=== PATIENT | male | born 1950 | race Caucasian/White ===

== ENCOUNTER 2017-10-08 17:00 | Inpatient (IN) | payer OTHER ==
[~2017-10-08] VITALS: Ht 167.6 cm; Wt 124.0 kg
[~2017-10-08 17:00] MED LIST: ALLERGY10 M2 PO; ALLOPURINOL100 MG PO; ALLOPURINOL300 MG PO; AMITRIPTYLINE100 MG PO; AMLODIPINE BESYL5 MG PO; APRESOLINE50 MG PO; ASCORBIC ACID500 M3 PO; ASPIRIN81 M1 PO; ASPIRIN81 M2 PO; Aspirin E.C. PO; B COMPLETE1 EACH PO; BALANCED B PO; BENEMID500 MG PO; BUDEPRION XL300 MG PO; BUPROPION XL300 MG PO; BUSPAR10 MG PO; Buspar PO; CALCIUM, MAG, ZINC PO; CALCIUM-MAGNES1 EAC9 PO; CEFDINIR300 MG PO; CELEXA10 MG PO; CELEXA20 MG PO; CELEXA40 MG PO; CHROMIUM PIC1000 MCG PO; CLARITIN10 MG PO; COLCHICINE,COL0.6 MG PO; COLCHICINE0.6 MG PO; COLCRYS0.6 MG PO; CYANOCOBALAM1000 MCG PO; Colchicine,Colcrys PO; DAILY VITE1 EAC1 PO; DARVOCET-N 1001 EACH PO; DELTASONE1 MG PO; ERGOCALCIF50000 UNIT PO; FIBER LAXATIV0.52 GM PO; FISH OIL CONC1 EACH PO; FLEXERIL10 MG PO; FLORASTOR250 MG PO; FUROSEMIDE40 MG PO; GARLIC1000 MG PO; GLIPIZIDE10 MG PO; GLUCOTROL10 MG PO; HUMULIN N300 UNIT/3 SC; HUMULIN NP100 UNIT/1 SC; HYDROCODON-ACE1 EAC7 PO; IRON325 M1 PO; IRON325 MG PO; K-DUR20 MEQ PO; K-Dur PO; KLOR-CON M2020 MEQ PO; LASIX40 MG PO; LEVAQUIN500 MG PO; LO-DOSE ASPIRIN81 M1 PO; LOPRESSOR25 MG PO; LOPRESSOR50 MG PO; LOW DOSE ASPIRI81 M2 PO; LYRICA75 MG PO; Lasix PO; Lopressor PO; MELATIN3 MG PO; MELATONIN3 MG PO; MELATONIN5 M1 PO; METOPROLOL SUCC25 MG PO; METOPROLOL TART50 MG PO; MICARDIS HCT1 TABLE2 PO; MOBIC15 MG PO; MULTIVITAMIN1 EAC1 PO; MULTIVITAMIN1 EAC2 PO; NEURONTIN600 MG PO; NORCO 5/3251 TABLET PO; NORVASC5 MG PO; NOVOLIN N100 UNIT/1 SQ; NOVOLIN N100 UNITS/ SC; NOVOLOG PE100 UNITS/ SC; Neurontin PO; Norvasc PO; OMEGA 3 1,0001 EACH PO; OMEGA III EPA1000 MG PO; OMEGA-31000 M1 PO; Omega III EPA + DHA PO; PERCOCET 5-3251 EACH PO; PERCOCET 5/31 TABLET PO; PRAVACHOL40 MG PO; PRAVASTATIN SOD40 MG PO; PREDNISONE10 MG PO; PROTONIX40 MG PO; PROZAC20 MG PO; Pravachol PO; TRAMADOL HCL50 MG PO; TYLENOL PM EX-1 EACH PO; TYLENOL REGULA325 MG PO; TYLENOL/CODE1 TABLET PO; Toprol XL PO; ULORIC40 MG PO; ULTRAM50 MG PO; VENLAFAXINE HCL75 M3 PO; VITAMIN B-6100 MG PO; VITAMIN C500 M1 PO; VITAMIN C500 MG PO; VITAMIN D2000 UNIT PO; VITAMIN D250000 UNIT PO; VITAMIN E400 UNIT PO; VOLTAREN-XR100 MG PO; ZANTAC150 M2 PO; ZANTAC150 MG PO; ZYLOPRIM100 MG PO; Zosyn IV; Zyloprim PO
[2017-10-08 18:02] LABS: HEMATOCRIT 44.1 % (38.0-50.0); HEMOGLOBIN 14.8 G/DL (12.5-16.6); MCHC 33.6 G/DL (30.0-36.0); MCV 95.5 FL (86-99); PLATELET COUNT 153 K/uL (156-360); RBC DIS.WIDTH-CV 14.4 % (11.8-14.6); RBC DIS.WIDTH-SD 50.1 % (39-53); RED BLOOD COUNT 4.62 M/uL (4.00-5.50); WHITE BLOOD COUNT 12.1 K/uL (4.1-10.2)
[2017-10-08 18:23] LABS: TROP-I INTERPRETATION NEGATIVE; TROPONIN-I 0.25 ng/mL (0.0-0.30)
[2017-10-08 18:24] LABS: CHLORIDE 104 MEQ/L (99-109); POTASSIUM 4.5 MEQ/L (3.7-5.4); SODIUM 137 MEQ/L (136-147)
[2017-10-08 18:30] LABS: CREATININE 1.6 MG/DL (0.6-1.3); GFR ESTIMATE (CALCULATED) 46 mL/min/ (58.99-99999); GLUCOSE 125 mg/dL (70-99); UREA NITROGEN (BUN) 57 mg/dL (9-23)
[2017-10-08 20:12] LABS: INTER. NORMALIZED RATIO 1.1
[2017-10-08 20:15] LABS: PTT 28.2 SEC (25-37)
[2017-10-08] MEDS ORDERED: DIFLUCAN200 MG PO (22:31)
[2017-10-08] MEDS ORDERED: ALLOPURINOL100 MG PO (22:31)
[2017-10-08] MEDS ORDERED: NYSTOP60 GM TP (22:31)
[2017-10-08] MEDS ORDERED: TRAZODONE HCL50 MG PO (22:31)
[2017-10-08] MEDS ORDERED: FIBER TABS625 MG PO (22:32)
[2017-10-08] MEDS ORDERED: COLACE100 MG PO (22:32)
[2017-10-08] MEDS ORDERED: TYLENOL EXTRA500 MG PO (22:32)
[2017-10-09 01:49] VITALS: BP 120/59
[2017-10-09 04:00] VITALS: BP 112/69
[2017-10-09 05:39] LABS: TROP-I INTERPRETATION NEGATIVE; TROPONIN-I 0.25 ng/mL (0.0-0.30)
[2017-10-09 08:00] VITALS: BP 114/59
[2017-10-09 08:44] LABS: HEMATOCRIT 40.2 % (38.0-50.0); HEMOGLOBIN 13.1 G/DL (12.5-16.6); MCHC 32.6 G/DL (30.0-36.0); PLATELET COUNT 157 K/uL (156-360); RBC DIS.WIDTH-CV 14.8 % (11.8-14.6); RBC DIS.WIDTH-SD 53.1 % (39-53); WHITE BLOOD COUNT 10.3 K/uL (4.1-10.2)
[2017-10-09 08:48] LABS: CHLORIDE 108 MEQ/L (99-109); POTASSIUM 3.9 MEQ/L (3.7-5.4); SODIUM 142 MEQ/L (136-147)
[2017-10-09 08:59] LABS: CREATININE 1.5 MG/DL (0.6-1.3); GFR ESTIMATE (CALCULATED) 49 mL/min/ (58.99-99999); UREA NITROGEN (BUN) 52 mg/dL (9-23)
[2017-10-09 09:00] LABS: GLUCOSE 84 mg/dL (70-99)
[2017-10-09 11:30] VITALS: BP 120/58
[2017-10-09 13:11] LABS: TROP-I INTERPRETATION NEGATIVE; TROPONIN-I 0.23 ng/mL (0.0-0.30)
[2017-10-09 13:35] LABS: UR CREATININE CONCENTRATION 49.9 MG/DL
[2017-10-09 16:30] VITALS: BP 136/65
[2017-10-09 20:21] VITALS: BP 137/71
[2017-10-10 04:00] VITALS: BP 128/76
[2017-10-10 06:21] LABS: BASOPHIL (%) 0.9 % (0-1); BASOPHIL COUNT 0.1 K/uL (0-0.1); EOSINOPHIL (%) 3.5 % (0-5); EOSINOPHIL COUNT 0.4 K/uL (0-0.3); HEMATOCRIT 40.5 % (38.0-50.0); HEMOGLOBIN 13.4 G/DL (12.5-16.6); IMMATURE GRANULOCYTE (%) 0.9 % (0.0-0.7); LYMPHOCYTE (%) 23.9 % (15-42); LYMPHOCYTE COUNT 2.6 K/uL (1.0-2.8); MCH 32.2 PG (29.0-34.0); MCHC 33.1 G/DL (30.0-36.0); MCV 97.4 FL (86-99); MONOCYTE COUNT 1.1 K/uL (0-0.8); NEUTROPHIL (%) 60.8 % (45-76); NEUTROPHIL COUNT 6.7 K/uL (1.8-6.4); PLATELET COUNT 144 K/uL (156-360); RBC DIS.WIDTH-CV 14.6 % (11.8-14.6); RBC DIS.WIDTH-SD 51.7 % (39-53); RED BLOOD COUNT 4.16 M/uL (4.00-5.50)
[2017-10-10 06:44] LABS: ALBUMIN 3.4 G/DL (3.2-4.8); CHLORIDE 108 MEQ/L (99-109); CREATININE 1.6 MG/DL (0.6-1.3); GFR ESTIMATE (CALCULATED) 46 mL/min/ (58.99-99999); GLUCOSE 88 mg/dL (70-99); GLUCOSE 90 mg/dL (70-99); PHOSPHORUS 3.7 mg/dL (2.5-4.9); POTASSIUM 3.8 MEQ/L (3.7-5.4); SODIUM 143 MEQ/L (136-147); UREA NITROGEN (BUN) 47 mg/dL (9-23); URIC ACID 4.5 mg/dL (3.1-9.2)
[2017-10-10 07:23] VITALS: BP 128/61
[2017-10-10 07:59] LABS: INTACT PARATHYROID HORMONE 107 pg/mL (10-69)
[2017-10-10 10:49] LABS: APPEARANCE CLEAR ((CLEAR)); BILIRUBIN NEGATIVE; BLOOD NEGATIVE; COLOR YELLOW ((YELLOW)); GLUCOSE (STRIP) NEGATIVE; KETONES NEGATIVE; LEUKOCYTES MODERATE; NITRITE NEGATIVE; PROTEIN (STRIP) 30; SPECIFIC GRAVITY 1.011 (1.000-1.030); UROBILINOGEN 0.2 MG/DL (0.2-1.0)
[2017-10-10 11:11] LABS: BACTERIA NONE SEEN /HPF; EPITHELIAL CELLS RARE /HPF; HYALINE CASTS 0-5 /LPF; MUCUS NONE SEEN /LPF; RED BLOOD CELLS 0-5 /HPF (0-5); UCUL ADDED? YES
[2017-10-10 11:52] VITALS: BP 110/59
[2017-10-10 15:50] VITALS: BP 145/60
[2017-10-10 20:00] VITALS: BP 139/74
[2017-10-10 23:22] VITALS: BP 124/65
[2017-10-11 04:18] VITALS: BP 133/63
[2017-10-11 07:29] VITALS: BP 138/64
[2017-10-11 10:58] LABS: CHLORIDE 105 MEQ/L (99-109); CREATININE 1.5 MG/DL (0.6-1.3); GFR ESTIMATE (CALCULATED) 49 mL/min/ (58.99-99999); POTASSIUM 3.6 MEQ/L (3.7-5.4); SODIUM 141 MEQ/L (136-147); UREA NITROGEN (BUN) 43 mg/dL (9-23)
[2017-10-11 10:59] LABS: GLUCOSE 138 mg/dL (70-99)
[2017-10-11 11:58] VITALS: BP 134/61
[2017-10-11 15:58] VITALS: BP 158/66
[2017-10-11] MEDS ORDERED: CLOPIDOGREL75 MG PO (16:29)
[2017-10-11] MEDS ORDERED: CALCITRIOL0.25 MCG PO (16:30)
== END 2017-10-11 18:40 | disposition home health service (06) | DRG 302 ==
LOC: EME 17:00 → EDOF 23:17 → 4EAST 23:17 → ENRESERV 23:19 → 4EAST 10-09 00:54 → ENPENDDIS 10-11 → 4EAST 10-11 18:40
PROVIDERS: Emergency Medicine; Hospitalist; Internal Medicine; Internal Medicine Nephrology; Physician Assistant Medical
DX: I25.110 Atherosclerotic heart disease of native coronary artery with unstable angina pectoris (principal); I50.23 Acute on chronic systolic (congestive) heart failure; N17.9 Acute kidney failure, unspecified; I35.0 Nonrheumatic aortic (valve) stenosis; N18.3 Chronic kidney disease, stage 3 (moderate); B37.2 Candidiasis of skin and nail; E11.22 Type 2 diabetes mellitus with diabetic chronic kidney disease; I48.91 Unspecified atrial fibrillation; J10.1 Influenza due to other identified influenza virus with other respiratory manifestations; E78.5 Hyperlipidemia, unspecified; E66.2 Morbid (severe) obesity with alveolar hypoventilation; I13.0 Hypertensive heart and chronic kidney disease with heart failure and stage 1 through stage 4 chronic kidney disease, or unspecified chronic kidney disease; E11.40 Type 2 diabetes mellitus with diabetic neuropathy, unspecified; Z68.41 Body mass index [BMI] 40.0-44.9, adult; E86.9 Volume depletion, unspecified; G89.29 Other chronic pain; I49.3 Ventricular premature depolarization; K21.9 Gastro-esophageal reflux disease without esophagitis; T39.395A Adverse effect of other nonsteroidal anti-inflammatory drugs [NSAID], initial encounter; F32.9 Major depressive disorder, single episode, unspecified; F41.9 Anxiety disorder, unspecified; I25.2 Old myocardial infarction; Z83.3 Family history of diabetes mellitus; Z82.49 Family history of ischemic heart disease and other diseases of the circulatory system; Z79.82 Long term (current) use of aspirin; Z79.02 Long term (current) use of antithrombotics/antiplatelets
CPT/HCPCS: 71046; 80048; 80069; 81003; 82306; 82570; 82948; 83880; 83970; 84156; 84484; 84550; 85025; 85027; 85610; 85730; 86021 90; 87086; 93005; 93308; 94660; 94799; 99281; 99285; J1650; J1815; J7512